=== PATIENT | male | born 1995 | race Caucasian/White ===

== ENCOUNTER 2020-03-05 16:38 | Emergency (ER) | payer OTHER ==
[2020-03-05 16:42] VITALS: RESP 18
[2020-03-05] MEDS ORDERED: IBUPROFEN 600 MG TAB PO STA (17:03)
--- NOTE | 2020-03-05 17:33 | XR ---
EXAMINATION TYPE: XR hand complete RT DATE OF EXAM: 03/05/2020 COMPARISON: NONE HISTORY: Pain and swelling TECHNIQUE: 4 views FINDINGS: There is nondisplaced transverse fracture across the base of the first metacarpal 1 cm from the first carpometacarpal joint. The other metacarpals are intact. The fingers are intact. Carpal chanda rhonda are intact. IMPRESSION: Acute nondisplaced first metacarpal fracture.
--- NOTE | 2020-03-05 17:33 | XR ---
EXAMINATION TYPE: XR wrist complete RT DATE OF EXAM: 03/05/2020 COMPARISON: NONE HISTORY: Pain and swelling TECHNIQUE: 4 views FINDINGS: Carpal bones are intact. I see no fracture nor dislocation of the radiocarpal joint. There is nondisplaced transverse fracture across the base of the first metacarpal. There is no dislocation. There is bone island in the scaphoid bone. IMPRESSION: Acute nondisplaced fracture of the base of the first metacarpal.
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
[2020-03-05] MEDS ORDERED: ACET/COD 300 MG/30 MG STARTER PACK 6 TAB BTL PO STA (17:59)
[2020-03-05 18:07] VITALS: BP 144/89; PULSE 68; TEMP 98.3
== END 2020-03-05 18:07 | disposition home or self-care (01) ==
LOC: EC 16:38
DX: S62.234A Other nondisplaced fracture of base of first metacarpal bone, right hand, initial encounter for closed fracture (principal); V86.56XA Driver of dirt bike or motor/cross bike injured in nontraffic accident, initial encounter; Y93.89 Activity, other specified
CPT/HCPCS: 29125; 99283